=== PATIENT | male | born 1980 | race American Indian/Alaskan Native ===

== ENCOUNTER 2020-12-03 04:11 | Emergency (ER) | payer OTHER ==
[2020-12-03] MEDS ORDERED: ZIPRASIDONE MESYLATE 20 MG VIAL IM ONE ×2 (04:36→04:44)
[2020-12-03] MEDS ORDERED: LORazepam 2 MG/ML VIAL ONE (04:36)
[2020-12-03] MEDS ORDERED: LORazepam 2 MG/ML VIAL IM ONE (04:44)
--- NOTE | 2020-12-03 05:00 | Event Note ---
ED Screening Note Date of service: 12/03/20 Time: 04:57 ED Screening Note: Patient brought into the ED by EMS. Patient was found, naked, sitting [place] [address] Unknown past medical or psychiatric history. Patient has no ID with him. At times, patient states his name is "Anival." Patient would not answer any further questions. Patient is being aggressive and uncooperative, therefore Geodon and Ativan given so that we can obtain a proper work-up, including CT head. This initial assessment/diagnostic orders/clinical plan/treatment(s) is/are subject to change based on patients health status, clinical progression and re- assessment by fellow clinical providers in the ED. Further treatment and workup at subsequent clinical providers discretion. Patient/guardian urged not to elope from the ED as their condition may be serious if not clinically assessed and managed. Initial orders include: Labs, CT head, Geodon, Ativan
[2020-12-03 05:29] LABS: Hematocrit 41.8 % (35.5-45.6); Hemoglobin 14.5 gm/dl (11.8-15.2); Mean Corpuscular HGB Conc 35 % (32-34); Mean Corpuscular Volume 96 fl (84-94); Platelet Count 150 K/mm3 (140-440); Red Blood Count 4.35 M/mm3 (3.65-5.03); Red Cell Distribution Width 12.7 % (13.2-15.2)
--- NOTE | 2020-12-03 05:42 | Cat Scan Report ---
CT HEAD WITHOUT CONTRAST INDICATION / CLINICAL INFORMATION: AMS. TECHNIQUE: All CT scans at this location are performed using CT dose reduction for ALARA by means of automated e xposure control. COMPARISON: None available. FINDINGS: HEMORRHAGE: None. EXTRA-AXIAL SPACES: Normal in size and morphology for the patient's age. VENTRICULAR SYSTEM: Normal in size and morphology for the patient's age. CEREBRAL PARENCHYMA: No significant abnormality. No acute territorial infarct. MIDLINE SHIFT OR HERNIATION: None. CEREBELLUM / BRAINSTEM: No significant abnormality. ORBITS: Normal as visualized. SOFT TISSUES of HEAD: Several partially calcified soft tissue masses within the left lateral and post erior scalp. CALVARIUM: No significant abnormality. PARANASAL SINUSES / MASTOID AIR CELLS: Normal as visualized. ADDITIONAL FINDINGS: None. IMPRESSION: 1. 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 Please correlate clinically 2. No acute intracranial bleed or large territorial infarction Signer Name: Brandan Henderson MD Signed: 12/03/2020 5:38 AM Workstation Name: [id number]
[2020-12-03 05:45] LABS: Alanine Aminotransferase 24 units/L (7-56); Albumin 4.7 g/dL (3.9-5); BUN/Creatinine Ratio 17; Blood Urea Nitrogen 15 mg/dL (9-20); Hemolysis Index 5
[2020-12-03 05:54] LABS: Bilirubin,Direct < 0.2 mg/dL (0-0.2)
[2020-12-03] MEDS ORDERED: POTASSIUM CHLORIDE ER 20 MEQ TAB PO ONE ×2 (06:19→11:00)
--- NOTE | 2020-12-03 06:26 | Emergency Department Report ---
HPI - General Chief Complaint: Altered Mental Status Time Seen by Provider: 12/03/20 06:00 - HPI HPI: This is a 40-year-old male who presents to the emergency department via EMS after he was found naked and altered [place] [address] [place]. Apparently he was repeating "Anival" and "I cannot stay here." When the patient was brought in he was initially seen by my colleague, the overnight emergency physician. The patient was found to be uncooperative, agitated, and required some Geodon and Ativan so that an examination could be done. At some point the patient became somewhat more lucid and was able to tell staff that his name is Anival Guzman. At the time of my examination, the patient is sedated from the Geodon and Ativan and unable to give me any further information. His labs have been reviewed and are mostly unremarkable other than some very mild hypokalemia. We have not yet obtained a urine sample for urinalysis and UDS. He had a CT scan of the head without contrast that does not show any hemorrhage, large vessel occlusion, or any other acute process. The patient has never been to this facility previously during the time of this EMR. ED Past Medical Hx - Past Medical History Additional medical history: UTO - Surgical History Additional Surgical History: UTO - Social History Smoking Status: Unknown if ever smoked ED Review of Systems ROS: Stated complaint: AMS Other details as noted in HPI Comment: Unobtainable due to pts medical conditions Physical Exam - Physical Exam Vital Signs: Vital Signs 12/03/20 12/03/20 04:20 04:25 Temperature 98.5 F Pulse Rate 100 H Respiratory 20 Rate Blood Pressure 135/82 [Left] O2 Sat by Pulse 98 98 Oximetry Physical Exam: GENERAL: The patient is well-developed well-nourished. HENT: Atraumatic. Patient has moist mucous membranes. EYES: Extraocular motions are intact. NECK: Supple. Trachea is midline. CHEST/LUNGS: Clear to auscultation. There is no respiratory distress noted. HEART/CARDIOVASCULAR: Regular. There is no tachycardia. There is no murmur. ABDOMEN: Abdomen is soft, nontender. Patient has normal bowel sounds. There is no abdominal distention. SKIN: Skin is warm and dry. NEURO: The patient is awake, alert. Normal speech. Cranial nerves II through XII intact. MUSCULOSKELETAL: There is no tenderness or deformity. There is no limitation range of motion. ED Course Vital Signs 12/03/20 12/03/20 04:20 04:25 Temperature 98.5 F Pulse Rate 100 H Respiratory 20 Rate Blood Pressure 135/82 [Left] O2 Sat by Pulse 98 98 Oximetry - Reevaluation(s) Reevaluation #1: 12/03/20 09:58 Patient is now seen awake, sitting up for his vitals. The patient is not forthcoming regarding his presentation to this emergency department and [place] without close by the [place]. He does admit to previously being diagnosed with bipolar disorder and schizophrenia but says "I do not agree with the diagnosis." He is not currently on any medication for it. The patient does not want to engage any further. ED Medical Decision Making - Lab Data Result diagrams: 12/03/20 05:10 12/03/20 05:10 Lab Results 12/03/20 12/03/20 12/03/20 Range/Units 05:10 05:10 05:10 WBC 11.9 H (4.5-11.0) K/mm3 RBC 4.35 (3.65-5.03) M/mm3 Hgb 14.5 (11.8-15.2) gm/dl Hct 41.8 (35.5-45.6) % MCV 96 H (84-94) fl MCH 33 H (28-32) pg MCHC 35 H (32-34) % RDW 12.7 L (13.2-15.2) % Plt Count 150 (140-440) K/mm3 Lymph # (Auto) Salmon Gillnet Vessel Operator Add Manual Diff Complete Total Counted 100 Seg Neuts % (Manual) 73.0 H (40.0-70.0) % Lymphocytes % (Manual) 21.0 (13.4-35.0) % Monocytes % (Manual) 6.0 (0.0-7.3) % Nucleated RBC % Not Reportable Seg Neutrophils # Man 8.7 H (1.8-7.7) K/mm3 Band Neutrophils # 0.0 K/mm3 Lymphocytes # (Manual) 2.5 (1.2-5.4) K/mm3 Abs React Lymphs (Man) 0.0 K/mm3 Monocytes # (Manual) 0.7 (0.0-0.8) K/mm3 Eosinophils # (Manual) 0.0 (0.0-0.4) K/mm3 Basophils # (Manual) 0.0 (0.0-0.1) K/mm3 Metamyelocytes # 0.0 K/mm3 Myelocytes # 0.0 K/mm3 Promyelocytes # 0.0 K/mm3 Blast Cells # 0.0 K/mm3 WBC Morphology Not Reportable Hypersegmented Neuts Not Reportable Hyposegmented Neuts Not Reportable Hypogranular Neuts Not Reportable Smudge Cells Not Reportable Toxic Granulation Not Reportable Toxic Vacuolation Not Reportable Dohle Bodies Not Reportable Pelger-Huet Anomaly Not Reportable Imelda Rods Not Reportable Platelet Estimate Consistent w auto Clumped Platelets Not Reportable Plt Clumps, EDTA Not Reportable Large Platelets Not Reportable Giant Platelets Not Reportable Platelet Satelliting Not Reportable Plt Morphology Comment Not Reportable RBC Morphology Normal Dimorphic RBCs Not Reportable Polychromasia Not Reportable Hypochromasia Not Reportable Poikilocytosis Not Reportable Anisocytosis Not Reportable Microcytosis Not Reportable Macrocytosis Not Reportable Spherocytes Not Reportable Pappenheimer Bodies Not Reportable Sickle Cells Not Reportable Target Cells Not Reportable Tear Drop Cells Not Reportable Ovalocytes Not Reportable Helmet Cells Not Reportable Bhatt-Ster[place] Bodies Not Reportable Sebec Rings Not Reportable Rillito Cells Not Reportable Bite Cells Not Reportable Crenated Cell Not Reportable Elliptocytes Not Reportable Acanthocytes (Spur) Not Reportable Rouleaux Not Reportable Hemoglobin C Crystals Not Reportable Schistocytes Not Reportable Malaria parasites Not Reportable Tho Bodies Not Reportable Hem Pathologist Commnt No Sodium 143 (137-145) mmol/L Potassium 3.4 L (3.6-5.0) mmol/L Chloride 108.4 H (98-107) mmol/L Carbon Dioxide 22 (22-30) mmol/L Anion Gap 16 mmol/L BUN 15 (9-20) mg/dL Creatinine 0.9 (0.8-1.3) mg/dL Estimated GFR > 60 ml/min BUN/Creatinine Ratio 17 % Glucose 139 H (75-100) mg/dL POC Glucose (70-105) mg/dL Calcium 9.0 (8.4-10.2) mg/dL Total Bilirubin 0.80 (0.1-1.2) mg/dL Direct Bilirubin < 0.2 (0-0.2) mg/dL Indirect Bilirubin 0.6 mg/dL AST 30 (5-40) units/L ALT 24 (7-56) units/L Alkaline Phosphatase 89 (35-129) units/L Total Protein 7.1 (6.3-8.2) g/dL Albumin 4.7 (3.9-5) g/dL Albumin/Globulin Ratio 2.0 % Salicylates < 0.3 L (2.8-20.0) mg/dL Acetaminophen (10.0-30.0) ug/mL Plasma/Serum Alcohol (0-0.07) % 12/03/20 12/03/20 12/03/20 Range/Units 05:10 05:10 10:07 WBC (4.5-11.0) K/mm3 RBC (3.65-5.03) M/mm3 Hgb (11.8-15.2) gm/dl Hct (35.5-45.6) % MCV (84-94) fl MCH (28-32) pg MCHC (32-34) % RDW (13.2-15.2) % Plt Count (140-440) K/mm3 Lymph # (Auto) Add Manual Diff Total Counted Seg Neuts % (Manual) (40.0-70.0) % Lymphocytes % (Manual) (13.4-35.0) % Monocytes % (Manual) (0.0-7.3) % Nucleated RBC % Seg Neutrophils # Man (1.8-7.7) K/mm3 Band Neutrophils # K/mm3 Lymphocytes # (Manual) (1.2-5.4) K/mm3 Abs React Lymphs (Man) K/mm3 Monocytes # (Manual) (0.0-0.8) K/mm3 Eosinophils # (Manual) (0.0-0.4) K/mm3 Basophils # (Manual) (0.0-0.1) K/mm3 Metamyelocytes # K/mm3 Myelocytes # K/mm3 Promyelocytes # K/mm3 Blast Cells # K/mm3 WBC Morphology Hypersegmented Neuts Hyposegmented Neuts Hypogranular Neuts Smudge Cells Toxic Granulation Toxic Vacuolation Dohle Bodies Pelger-Huet Anomaly Imelda Rods Platelet Estimate Clumped Platelets Plt Clumps, EDTA Large Platelets Giant Platelets Platelet Satelliting Plt Morphology Comment RBC Morphology Dimorphic RBCs Polychromasia Hypochromasia Poikilocytosis Anisocytosis Microcytosis Macrocytosis Spherocytes Pappenheimer Bodies Sickle Cells Target Cells Tear Drop Cells Ovalocytes Helmet Cells Bhatt-Sterlington Bodies Sebec Rings Rillito Cells Bite Cells Crenated Cell Elliptocytes Acanthocytes (Spur) Rouleaux Hemoglobin C Crystals Schistocytes Malaria parasites Tho Bodies Hem Pathologist Commnt Sodium (137-145) mmol/L Potassium (3.6-5.0) mmol/L Chloride (98-107) mmol/L Carbon Dioxide (22-30) mmol/L Anion Gap mmol/L BUN (9-20) mg/dL Creatinine (0.8-1.3) mg/dL Estimated GFR ml/min BUN/Creatinine Ratio % Glucose (75-100) mg/dL POC Glucose 87 (70-105) mg/dL Calcium (8.4-10.2) mg/dL Total Bilirubin (0.1-1.2) mg/dL Direct Bilirubin (0-0.2) mg/dL Indirect Bilirubin mg/dL AST (5-40) units/L ALT (7-56) units/L Alkaline Phosphatase (35-129) units/L Total Protein (6.3-8.2) g/dL Albumin (3.9-5) g/dL Albumin/Globulin Ratio % Salicylates (2.8-20.0) mg/dL Acetaminophen 5.0 L (10.0-30.0) ug/mL Plasma/Serum Alcohol < 0.01 (0-0.07) % - Medical Decision Making This patient presented for a mental health evaluation after he initially [place] PD [place]. The patient required some treatment/sedation early this morning and was sleeping when I first attempted to evaluate this patient. However, later, around 10 AM, the patient is seen awake and alert. The patient was not very forthcoming regarding what occurred prior to presentation, and he denies that he actually has a psychiatric illness, but does admit that he was previously diagnosed with bipolar disorder and schizophrenia. The patient denies any suicidal or homicidal ideations. Labs have been mostly unremarkable including CBC, metabolic panel, blood alcohol level. We do not have a urine sample for urinalysis and UDS. Patient had a CT scan of the head without contrast, prior to my shift starting, that did not show any hemorrhage, large vessel occlusion, or any other acute process. The patient was seen by the psychiatric nurse practitioner, under the care of Dr. Pavon, and they do not feel that the patient requires inpatient stabilization at this time. The patient will be given outpatient psychiatric referrals. He has been instructed to return to the closest emergency department with any worsening of his symptoms, thoughts of harming himself or others, or with any acute distress. Critical Care Time: No Critical care attestation.: If time is entered above; I have spent that time in minutes in the direct care of this critically ill patient, excluding procedure time. ED Disposition Clinical Impression: Encounter for screening examination for mental health and behavioral disorders Disposition: HOME / SELF CARE / HOMELESS Is pt being admited?: No Condition: Stable Additional Instructions: Please follow-up with a primary care physician in the next few days. I have given you a referral for a local primary care physician, Dr. Earl, and a primary care clinic, [facility]. Please follow-up with one of the psychiatric outpatient referrals that you have been given. Please avoid any alcohol or illicit drug use. Return to the emergency department with any worsening of your symptoms, thoughts of harming your self or others, or with any acute distress. Professional and Agency Contacts To help Resolve Crises(10/11) [place] Crisis Line: Suicide Prevention Line: Crisis Text Line: Text START to 069382 Emergency: 911 Outpatient COMMUNITY Behavioral Health Resources: [place]: [facility] [address] [place], [place] [address] [place]: [facility] [address] [place] [address] [place]: [facility] - [address] [place] [address] Thursday thru Thursday - 8am - 5pm [place]: [facility] Service Address: [address], [place] [address] [facility] Address: [address] [place] [address] Thursday thru Thursday- 7am-2pm [facility] Address: [address] [place] [address] Thursday thru Thursday: 8:30AM-5PM In case of an emergency, please contact the following numbers: [place] Crisis and Access Line: Number: Crisis Text Line: (Text START) Number: 748752 Suicide Prevention Line: Number: Emergency Number: 911 SUBSTANCE ABUSE PROGRAMS: [facility]: Location: [place], [place] [facility] Address: [address] [place] [address] [facility]: Address: [address] [facility] [place] [address] [facility]: Address: [address] [place] [address] [facility]: Address: [address] [place] [address] [facility] Address: [address] [place] [address]. Please contact above numbers to attempt placement into free based program. Medicaid Programs: [facility]: Address: [address] [place] [address] [facility]: Address: [address] [place] [id number] Referrals: [facility] [Provider Group] - 3-5 Days [facility] - 3-5 Days LUZMARIA EARL MD [Staff Physician] - 3-5 Days PRIMARY CAREMD [Primary Care Provider] - 3-5 Days Time of Disposition: 13:28
[2020-12-03 06:44] LABS: Platelet Estimate Consistent w Auto; RBC Morphology Normal; Total Cells Counted 100
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
[2020-12-03 12:44] VITALS: BP 128/96
== END 2020-12-03 12:44 | disposition home or self-care (01) ==
LOC: EDBD → ED 04:11
DX: Z13.30 Encounter for screening examination for mental health and behavioral disorders, unspecified (principal); Z86.2 Personal history of diseases of the blood and blood-forming organs and certain disorders involving the immune mechanism
CPT/HCPCS: 36415; 70450; 80048; 80076; 82962; 85007; 85025; 96372; 99284; J2060; J3486; 80320; G0480